=== PATIENT | female | born 1990 | race African-American/Black ===

== ENCOUNTER 2019-09-04 15:35 | Outpatient (CLI) | payer OTHER ==
[2019-09-04] VITALS (11 sets, daily range): BP systolic 120–157; BP diastolic 58–90
[2019-09-04] MEDS ORDERED: LR 1,000 ML IV SCH (16:04)
[2019-09-04] MEDS ORDERED: LACTATED RINGER'S 1000 ML IV STA (16:04)
[2019-09-04] MEDS ORDERED: ONDANSETRON 4MG/2ML VIAL (J2405) IV PRN (16:15)
[2019-09-04 16:39] LABS: HEMATOCRIT 41.4 % (36.0-47.0); MEAN CORPUSCULAR HEMOGLOBIN 25.3 pg (27.0-33.0); MEAN CORPUSCULAR HGB CONC 31.4 g/dl (32.0-36.5); MEAN CORPUSCULAR VOLUME 80.7 fl (80.0-96.0); PLATELET COUNT, AUTOMATED 263 10^3/uL (150-450); RED BLOOD COUNT 5.13 10^6/uL (4.00-5.40); WHITE BLOOD COUNT 8.6 10^3/uL (4.0-10.0)
[2019-09-04 17:00] LABS: CREATININE,RANDOM URINE < 13.0 MG/DL; TOTAL PROTEIN,RANDOM URINE 21.4 MG/DL (0.0-12.0)
[2019-09-04 17:03] LABS: ALBUMIN 2.9 GM/DL (3.2-5.2); ALT/SGPT 25 U/L (12-78); BILIRUBIN,TOTAL 0.4 MG/DL (0.2-1.0); BLOOD UREA NITROGEN 2 MG/DL (7-18); CALCIUM LEVEL 9.4 MG/DL (8.5-10.1); CARBON DIOXIDE LEVEL 24 MEQ/L (21-32); CHLORIDE LEVEL 107 MEQ/L (98-107); CREATININE FOR GFR 0.56 MG/DL (0.55-1.30); GLOMERULAR FILTRATION RATE > 60.0 (>60); GLUCOSE, FASTING 64 MG/DL (70-100); POTASSIUM SERUM 3.5 MEQ/L (3.5-5.1); SODIUM LEVEL 138 MEQ/L (136-145); TOTAL PROTEIN 7.1 GM/DL (6.4-8.2)
[2019-09-04] MEDS ORDERED: BETAMETHASONE SOLUSPAN 6MG/ML INJ 5ML (J0702) As Ordered ONE (17:43)
[2019-09-04] MEDS ORDERED: BETAMETHASONE SOLUSPAN 6MG/ML INJ 5ML (J0702) IM SCH (17:45)
--- NOTE | 2019-09-04 20:55 | REPVR ---
PROCEDURE INFORMATION: Exam: US After First Trimester, Transabdominal Exam date and time: 09/04/2019 7:46 PM Age: 29 years old Clinical indication: Condition or disease; Lmp or gestational age (weeks): 35w 5d; Pre-eclampsia; 1st ; ; Additional info: 35 weeks new dx pre-eclampsia TECHNIQUE: Imaging protocol: Real-time transabdominal obstetrical ultrasound of the maternal pelvis and a second or third trimester with image documentation. COMPARISON: No relevant prior studies available. FINDINGS: Last menstrual period: 12/28/2018 GESTATION: Gestation: There is a single intrauterine gestation. Heart rate: 131 beats per minute Presentation: Vertex Placenta: The location of the placenta is posterior without evidence for placenta previa or placental abruption. The placenta is grade 2. Amniotic fluid: Within normal limits. The amniotic fluid index measures 11.6 cm. Head, face, and neck: Within normal limits. Heart: Within normal limits. Abdomen: There is bilateral pelviectasis. The diaphragm, left-sided stomach, and urinary bladder are within normal limits. Umbilical cord and insertion: The three-vessel umbilical cord is within normal limits. No nuchal cord was visualized. Spine: Within normal limits. Extremities: Poorly visualized secondary to the advanced gestational age, patient's body habitus, and crowding. Gender: Female BIOMETRY: Estimated gestational age: 35 weeks 6 days Estimated due date: 10/03/2019 Estimated weight: 2753 g (6 lb 1 oz); (50th percentile) Biparietal diameter: 9.1 cm; 37 weeks 1 day (70th percentile) Head circumference: 32.5 cm; 36 weeks 6 days (69th percentile) Abdominal circumference: 31.7 cm; 35 weeks 5 days (49th percentile) Humerus length: 6 cm; 34 weeks 5 days (35th percentile) Femur length: 6.8 cm; 34 weeks 6 days (38th percentile) Ratios: CI = 0.8 (0.7-0.86); FL/AC = 0.21 (0.2-0.24); FL/BPD = 0.74 (0.71-0.87); HC/AC = 1.02 (0.93-1.12) DOPPLER: Umbilical artery Doppler: PSV = 39.4 cm/s; EDV = 19.1 cm/s; S/D = 2.06 (2.00-3.00); RI = 0.52 (0.59-0.75) MATERNAL: Uterus: Unremarkable. Cervix: The cervical length was not measured due to the low position of the head of the fetus and a nondistended urinary bladder. Right adnexa: Obscured by overlying bowel gas. Left adnexa: Obscured by overlying bowel gas. IMPRESSION: 1. Single live intrauterine in vertex position with an estimated gestational age of 35 weeks 6 days and estimated due date on 10/03/2019 and demonstrating appropriate signs of growth. 2. Estimated weight: 2753 g (6 lb 1 oz), which is in the 50th percentile. Electronically signed by: Otoniel Mai On 09/04/2019 20:54:28 PM
--- NOTE | 2019-09-04 21:10 | IPNPDOC ---
Text Note Date of Service The patient was seen on 09/04/19. NOTE Triage Note- new diagnosis of pre-eclampsia withOUT severe features Mary is a 29yo with SIUP at 35w5d presenting to triage with CC of "tunnel vision". She notes that for the hour prior to presentation she had been experiencing a visual sensation of blurring around the edges that she has experienced before with a migraine, but she does not currently have a migraine or any kind of headache. She has had ctx the past week, but they have been a bit more regular for the past few hours- not painful at all. No LOF. No vaginal bleeding. No RUQ pain. No f/c/CP/SOB. 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 Single live intrauterine in vertex position with an estimated gestational age of 35 weeks 6 days and estimated due date on 10/03/2019 and demonstrating appropriate signs of growth. 2. Estimated weight: 2753 g (6 lb 1 oz), which is in the 50th percentile. Assessment: Mary is a 29yo with SIUP at 35w5d with new diagnosis of pre-eclampsia withOUT severe features based on mild range bp's and proteinuria. Other labs wnl. Reassuring status. Growth 50%ile. No e/o PTL with SCE 1/thick/high. Plan: -betamethasone 12mg IM now and again in 24hr on L&D -discussed pre-eclampsia with patient at length and instructed her to pay attention for signs of worsening pre-E such as PIERRE/vision changes/RUQ pain -APFTs 2x/week, COB visit within a week and IOL at 37wk (scheduled 12 September) -return precautions discussed at length -safe for discharge home with close follow up Dr. Beverly Hester MD VS,Baron, I+O VS, Baron, I+O Laboratory Tests 09/04/19 16:23 Vital Signs Date Time Temp Pulse Resp B/P (MAP) Pulse Ox O2 Delivery O2 Flow Rate FiO2 09/04/19 18:15 112 18 123/64 (83) Beverly Hester MD Sep 04, 2019 19:43
[2019-09-05] MEDS ORDERED: PRENTAB9 PO (18:21)
== END 2019-09-04 21:05 | disposition home or self-care (01) ==
LOC: M LDO 15:35
PROVIDERS: ATTEND Obstetrics & Gynecology
DX: O14.03 Mild to moderate pre-eclampsia, third trimester (principal); Z3A.35 35 weeks gestation of pregnancy; O99.213 Obesity complicating pregnancy, third trimester; E66.9 Obesity, unspecified; O99.413 Diseases of the circulatory system complicating pregnancy, third trimester; I48.91 Unspecified atrial fibrillation; O34.211 Maternal care for low transverse scar from previous cesarean delivery; Z88.5 Allergy status to narcotic agent; Z79.899 Other long term (current) drug therapy
CPT/HCPCS: 59025; 76811; 76820; 80053; 82570; 84156; 85027; 96372; 96374; G0378; G0463; J0702

== ENCOUNTER 2019-09-05 18:12 | Outpatient (CLI) | payer OTHER ==
[~2019-09-05] VITALS: Ht 160 cm; Wt 104.6 kg
[2019-09-05] MEDS ORDERED: PRENTAB9 PO (18:21)
[2019-09-05 18:23] VITALS: BP 171/96
[2019-09-05] MEDS ORDERED: BETAMETHASONE SOLUSPAN 6MG/ML INJ 5ML (J0702) IM ONE ×2 (18:30→19:00)
[2019-09-05 18:43] VITALS: BP 179/101
[2019-09-05] MEDS ORDERED: BETAMETHASONE SOLUSPAN 6MG/ML INJ 5ML (J0702) As Ordered ONE (18:48)
[2019-09-05 19:13] VITALS: BP 182/107
[2019-09-05 19:28] VITALS: BP 136/67
--- NOTE | 2019-09-05 20:27 | IPNPDOC ---
Text Note Date of Service The patient was seen on 09/05/19. NOTE Patient is a 29yo at 35.6wk with mild pre-eclampsia for second dose of beta. She had elevated BPs in 140s/80s-150s/90s and visual changes and headache. Intermittent contractions. Cervix was 1/thick/high. Labs were essentially WNL. Today she is without symptoms except hand swelling. Good movement. BPs initially 170s/100s until after injection and repositioning then 140s/80s. DTRs +2, no edema, FHT Cat 1, 130s, reactive, no decels, no contractions. She was given preeclampsia precautions for worsening. She will be induced on 09/13/2019. She has an appt 09/08/2019. VS,Fishbone, I+O VS, Fishbone, I+O Vital Signs Date Time Temp Pulse Resp B/P (MAP) Pulse Ox O2 Delivery O2 Flow Rate FiO2 09/05/19 19:28 100 18 136/67 (90) 09/05/19 18:23 100.3 Genoveva Cuba MD Sep 05, 2019 20:27
== END 2019-09-05 20:26 | disposition home or self-care (01) ==
LOC: M LDO 18:12
PROVIDERS: ATTEND Advanced Practice Midwife
DX: O14.03 Mild to moderate pre-eclampsia, third trimester (principal); Z3A.35 35 weeks gestation of pregnancy; Z88.5 Allergy status to narcotic agent; Z79.899 Other long term (current) drug therapy
CPT/HCPCS: 59025; 96372; G0463; J0702

== ENCOUNTER 2019-09-10 21:20 | Inpatient (IN) | payer OTHER ==
[~2019-09-10] VITALS: Ht 160 cm; Wt 105.5 kg
[2019-09-10] VITALS (7 sets, daily range): BP systolic 146–179; BP diastolic 86–108
[~2019-09-10 21:20] MED LIST: PRENTAB9 PO
[2019-09-10] MEDS ORDERED: LABETALOL HCL 100 MG/20 ML VIAL IV STA (22:28)
[2019-09-10] MEDS ORDERED: LR 1,000 ML IV SCH (22:39)
[2019-09-10] MEDS ORDERED: PENICILLIN G POTASSIUM IV 5 MU in D5W MINI-BAG PLUS 100 ML IV STA (22:39)
[2019-09-10 22:41] LABS: BASO % 0.3 % (0.0-1.0); EOS # 0.2 10^3/uL (0.0-0.5); EOS % 2.1 % (0.0-3.0); HEMATOCRIT 34.9 % (36.0-47.0); HEMOGLOBIN 10.8 g/dl (12.0-15.5); LYMPH # 1.9 10^3/uL (1.5-5.0); LYMPH % 24.4 % (24.0-44.0); MEAN CORPUSCULAR HEMOGLOBIN 24.3 pg (27.0-33.0); MEAN CORPUSCULAR HGB CONC 30.9 g/dl (32.0-36.5); MEAN CORPUSCULAR VOLUME 78.6 fl (80.0-96.0); MONO # 0.6 10^3/uL (0.0-0.8); MONO % 8.3 % (0.0-5.0); NEUTROPHILS % 64.4 % (36.0-66.0); PLATELET COUNT, AUTOMATED 273 10^3/uL (150-450); RED BLOOD COUNT 4.44 10^6/uL (4.00-5.40); WHITE BLOOD COUNT 7.7 10^3/uL (4.0-10.0)
[2019-09-10] MEDS ORDERED: OXYTOCIN DRIP 30 UNITS in IV 1 EA IV SCH (22:45)
[2019-09-10] MEDS ORDERED: CALCIUM GLUCONATE 1,000 MG in D5W MINI-BAG PLUS 100 ML IV PRN (22:45)
[2019-09-10] MEDS ORDERED: MAG Sulf (L&D) 4 GM/100 ML 4 GM in IV 1 EA IV ONE (22:45)
[2019-09-10] MEDS ORDERED: OXYTOCIN 30 UNITS IN 0.9% NaCl 500ML IV BAG (J2590) As Ordered ONE (22:45)
[2019-09-10 22:57] LABS: CREATININE,RANDOM URINE < 13.0 MG/DL; TOTAL PROTEIN,RANDOM URINE 11.9 MG/DL (0.0-12.0)
[2019-09-10 22:59] LABS: ALBUMIN 2.3 GM/DL (3.2-5.2); ALT/SGPT 20 U/L (12-78); BILIRUBIN,TOTAL 0.2 MG/DL (0.2-1.0); BLOOD UREA NITROGEN 4 MG/DL (7-18); CALCIUM LEVEL 8.7 MG/DL (8.5-10.1); CARBON DIOXIDE LEVEL 23 MEQ/L (21-32); CHLORIDE LEVEL 109 MEQ/L (98-107); CREATININE FOR GFR 0.47 MG/DL (0.55-1.30); GLOMERULAR FILTRATION RATE > 60.0 (>60); GLUCOSE, FASTING 89 MG/DL (70-100); POTASSIUM SERUM 3.7 MEQ/L (3.5-5.1); SODIUM LEVEL 139 MEQ/L (136-145); TOTAL PROTEIN 5.9 GM/DL (6.4-8.2)
[2019-09-10] MEDS ORDERED: LABETALOL HCL 100 MG/20 ML VIAL IV PRN (23:00)
[2019-09-10] MEDS ORDERED: ACETAMINOPHEN 500 MG TAB PO PRN (23:30)
[2019-09-10] MEDS ORDERED: PROMETHAZINE INJ 25 MG/ML VIAL (J2550) IV ONE (23:30)
[2019-09-10] MEDS ORDERED: BUTORPHANOL 2 MG/ML INJ (J0595) IV PRN (23:30)
--- NOTE | 2019-09-10 23:30 | HPEPDOC ---
Obstetrical History & Physical General Date of Admission 10 September 2019 History of Present Illness Mary is a 29yo with SIUP at 36w4d by lmp presenting to L&D tori with chief complaint of frontal headache and white shooting spots in her vision. She was diagnosed with pre-eclampsia withOUT severe features previously on 09/04/19, given steroids and scheduled for IOL at 37wk- she was given return precautions and appropriately came in. She is having regular ctx, not too strong yet. No LOF. No vaginal bleeding. Feels good movement. No chest pain, SOB or RUQ pain. Chief Complaint: Contractions, term, Pre-eclamsia Information Provided By: Patient Care Care: Good Care Dating Final EDC: Oct 04, 2019 Final EDC by: LMP Antepartum Course Diagnos(e)s Pre-eclampsia with severe features, an episode of paroxysmal atrial fibrillation for which she was started on diltiazem but then with normal cardiac echo and EKG the diltiazem was discontinued without further incident, Obesity BMI 35, history of one prior section for indication with subsequent successful (8lb5oz) complicated by pulmonary edema, transfer-in at 27 weeks Height (inches): 63 Pre- weight (lbs.): 198 Admission Weight (lbs.): 229 Change in Weight (lbs.): 31 Past Medical History Past Obstetrical History : Past Obstetrical History: Multigravida (2016 PLTCS for indication at 41wk (8lb9oz), 2018 38wk active labor 8lb5oz admitted 1 month later for pulmonary edema) Past Medical History Medical History Obesity BMI 35, childhood asthma Surgical History: section, Gallbladder, [place] teeth Family History Significant Family History: No pertinent family hx Social History Marital Status: Family situation: Spouse/partner home Psychosocial History: No pertinent psych hx * Smoker: non-smoker Alcohol: Denies Drugs: denies Imunizations Tdap status: current Influenza Status: current Allergies Coded Allergies: codeine (Verified Allergy, Mild, hands and face swell, 09/05/19) Medications Scheduled No.137/Iron/Folic Acd ( Vitamin Tablet) 1 Each Tablet, 1 TAB PO DAILY Physical Examination Physical Examination GENERAL: Alert and oriented times three. ABDOMEN: Gravid and non-tender to touch. FETUS: Is vertex (VTX) by sterile vaginal examination (SVE) EXTREMITIES: trace pedal edema Vital Signs/I&O Vital Signs Date Time Temp Pulse Resp B/P (MAP) Pulse Ox O2 Delivery O2 Flow Rate FiO2 09/10/19 21:45 98.3 110 18 179/108 (131) 98 Room Air Laboratory Data 24H LABS Laboratory Tests 2 09/10/19 22:23: Immature Granulocyte % (Auto) 0.5, Neutrophils (%) (Auto) 64.4, Lymphocytes (%) (Auto) 24.4, Monocytes (%) (Auto) 8.3H, Eosinophils (%) (Auto) 2.1, Basophils (%) (Auto) 0.3, Neutrophils # (Auto) 5.0, Lymphocytes # (Auto) 1.9, Monocytes # (Auto) 0.6, Eosinophils # (Auto) 0.2, Basophils # (Auto) 0.0, Nucleated Red Blo od Cells % (auto) 0.7H 09/10/19 22:24: CBC/BMP Laboratory Tests 09/10/19 22:23 Pertinent Laboratoy Data Blood Type: B+ RBC Antibody Screen: Negative HIV: Negative Hepatitis B: Negative Hepatitis C: Unknown Rapid Plasma Reagin: Nonreactive Rubella: Immune Varicella: Immune Chlamydia/Gonorrhea: Negative Group B Streptococcus: Unknown Glucose Tolerance Test: 106 Anatomy Ultrasound Ultrasound Date: Sep 04, 2019 Placenta Location: Posterior Normal Anatomy: Yes Placenta Previa: No Steroid Therapy Steroid Therapy: No Vaginal Examination Dilation: 3 cm Effacement: 50% Station: -2 Cervical Consistency: Medium Cervical Position: Middle Presentation: Cephalic presentation Assessment Heart Rate (FHR): 140 Variability: Moderate Accelerations: Positive Decelerations: None Tocometer Contractions: Yes Frequency: regular, every 2-5 min. Duration: greater than 60 seconds Strength: palpated as mild Assessment/Plan Assessment Mary is a 29yo with SIUP at 36w4d by lmp having new diagnosis of pre- eclampsia WITH severe features based on severe range bp's in the setting of prior dx of pre-eclampsia (previously mild range bp's) having proteinuria. She has frontal headache and scotoma. Initial bp 179/108 that was similar when repeated. Cat I FHRT. SCE 3/50/-2. Ctx q5min. GBS unknown. Plt 273. urine prot/creat 0.92. creat 0.47. AST/ALT wnl. Goodwin cervical balloon placed with 40c c NS, well tolerated. course/PMhx significant for: Pre-eclampsia with severe features, an episode of paroxysmal atrial fibrillation for which she was started on diltiazem but then with normal cardiac echo and EKG the diltiazem was discontinued without further incident, Obesity BMI 35, history of one prior section for indication with subsequent successful (8lb5oz) complicated by pulmonary edema treated with lasix, transfer-in at 27 weeks, childhood asthma Plan Admit and orient. Counseled and consented. Patient has history of a section followed by a successful and desires another TOLAC. We discussed diagnosis of pre- eclampsia WITH severe features. Discussed need for IOL (though really augmentation of latent labor since and rebecca regularly). Will proceed with goodwin bulb and IV pitocin, eventually AROM. Will place IUPC if needed. Labetalol 20mg IV now and will repeat as needed. IV MgSO4 4g/2g per protocol with q1hr neuro checks. Goodwin catheter. Bedrest. tylenol 1,000mg PO q6hr prn PIERRE Diet: clear liquids Group B Streptococcus (GBS) unknown (swab was done 09/07 but not yet resulted): since will given PCN prophylaxis Labs and intravenous (IV) per unit protocol. CBC, CMP, urine protein/creatinine, type and screen, RPR Lactated Ringers (LR) total IVF 125 mL/hr. Anticipate normal spontaneous delivery () MD Kacie Edwards Katrina D MD Sep 10, 2019 23:16
[2019-09-10] MEDS: MAG Sulf (OBGYN) 20GM/500ML 20,000 MG in IV 1 EA IV SCH (23:39)
[2019-09-11] VITALS (48 sets, daily range): BP systolic 126–190; BP diastolic 61–103
[2019-09-11] MEDS: PENICILLIN G POTASSIUM IV 2.5 MU in IV 1 EA IV SCH ×2 (04:13→08:32)
[2019-09-11] MEDS: DOCUSATE SODIUM 100 MG CAP PO SCH (09:00)
[2019-09-11] MEDS: MAG Sulf (OBGYN) 20GM/500ML 20,000 MG in IV 1 EA IV SCH (09:18)
--- NOTE | 2019-09-11 09:22 | IPNPDOC ---
Text Note Date of Service The patient was seen on 09/11/19. NOTE Patient becoming more uncomfortable with ctxs. VS WNL with BP 140s/80s GEN: mildly uncomfortable appearing ABD: nontender, gravid SVE: 5/70/0, AROM clear LE: SCDS in place, nontender FHT: Cat 1, 130s, reactive, ctx q3-4min A/P: Fetus reassuring. Will reduce pitocin due to AROM accordingly. Patient desiring epidural for pain. Expect /. VS,Fishbone, I+O VS, Fishbone, I+O Laboratory Tests 09/10/19 22:23 Vital Signs Date Time Temp Pulse Resp B/P (MAP) Pulse Ox O2 Delivery O2 Flow Rate FiO2 09/11/19 08:33 99 18 143/86 (105) 09/11/19 07:33 97.5 09/11/19 04:00 98 Room Air I&O- Last 24 Hours up to 6 AM 09/11/19 06:00 Intake Total 941.8 ml Output Total 1975 ml Balance -1033.2 ml Genoveva Cuba MD Sep 11, 2019 09:22
[2019-09-11 10:32] LABS: HEMATOCRIT 35.5 % (36.0-47.0); HEMOGLOBIN 11.1 g/dl (12.0-15.5); MEAN CORPUSCULAR HEMOGLOBIN 24.4 pg (27.0-33.0); MEAN CORPUSCULAR HGB CONC 31.3 g/dl (32.0-36.5); PLATELET COUNT, AUTOMATED 289 10^3/uL (150-450); RED BLOOD COUNT 4.55 10^6/uL (4.00-5.40); WHITE BLOOD COUNT 10.1 10^3/uL (4.0-10.0)
[2019-09-11] MEDS ORDERED: OXYTOCIN DRIP 30 UNITS in IV 1 EA IV SCH (11:35)
[2019-09-11] MEDS ORDERED: MAG Sulf (OBGYN) 20GM/500ML 20,000 MG in IV 1 EA IV SCH (11:35)
[2019-09-11] MEDS ORDERED: MEASLES,MUMPS,RUBELLA VACCINE INJ (MMR-II) (90707) SC SCH (11:45)
[2019-09-11] MEDS ORDERED: ACETAMINOPHEN 500 MG TAB PO PRN (11:45)
[2019-09-11] MEDS ORDERED: LIDOCAINE 1% MDV 20ML VIAL INFIL ONE (11:45)
[2019-09-11] MEDS ORDERED: MOM 30ML SUSPENSION UDC PO PRN (11:45)
[2019-09-11] MEDS ORDERED: CALCIUM GLUCONATE 1,000 MG in D5W MINI-BAG PLUS 100 ML IV PRN (11:45)
[2019-09-11] MEDS ORDERED: DIBUCAINE 1% OINTMENT 30GM TOP PRN (11:45)
[2019-09-11] MEDS ORDERED: ONDANSETRON 4MG/2ML VIAL (J2405) IV PRN (11:45)
[2019-09-11] MEDS ORDERED: ANUSOL HC CREAM 30GM TOP PRN (11:45)
[2019-09-11] MEDS ORDERED: RHOGAM 300 MCG (1500 IU) INJ (J2790) IM SCH (11:45)
[2019-09-11] MEDS ORDERED: IBUPROFEN 600 MG TAB PO PRN (11:45)
[2019-09-11] MEDS ORDERED: METHYLERGONOVINE MALEATE 0.2 MG TAB PO PRN (11:45)
--- NOTE | 2019-09-11 11:54 | DNPDOC ---
[facility] Delivery Note Delivery Note DATE OF DELIVERY: 09/11/2019 PREDELIVERY DIAGNOSIS: 36 5/7 weeks' gestation and labor. POST DELIVERY DIAGNOSIS: Delivered. PROCEDURE: Spontaneous vaginal delivery after section. DIALS SUPERVISOR: Dr. Cuba ANESTHESIA: None. ESTIMATED BLOOD LOSS: 250 mL. FINDINGS: 6 pound 10 ounce 3010gm female , Score 9/10, nuchal cord times 0. DELIVERY SUMMARY: Patient is a 29-year-old 4 now para 3 who was admitted to labor and delivery for active labor for 12hours. Patient AROM clear around 0900. Baby girl head was delivered without difficulty over intact perineum in AYAZ position at 1059. The nose and mouth were bulb suctioned. No nuchal cord was noted. The shoulders were then delivered without difficulty. Cord was then clamped x2 and cut after pulsation. was handed on mother's belly. Pitocin bolus was started. Perineum and vagina was inspected and found to have a 1st degree laceration. This was repaired with 1% lidocaine 4cc with 2-0 chromic. The placenta was then delivered at 1106 spontaneously intact. Cord had a 3 vessel cord. EBL was 250mL. The vagina and perineum were reinspected and no further lacerations were found and hemostasis was good. Fundus was firm. Patient tolerated delivery well. Genoveva Cuba MD Sep 11, 2019 11:46
[2019-09-11] MEDS ORDERED: diazePAM 2 MG TAB PO ONE (13:00)
--- NOTE | 2019-09-11 14:08 | IPNPDOC ---
Text Note Date of Service The patient was seen on 09/11/19. NOTE Called by nurse due to BP ranging from 130s/80s-190s/110s. Patient otherwise feeling ok. No labetolol given yet. Patient on Magnesium sulfate 2gm/hr. I will start nifedipine XL BID with Labetolol PRN. VS,Fishbone, I+O VS, Fishbone, I+O Laboratory Tests 09/10/19 22:23 09/11/19 10:16 Vital Signs Date Time Temp Pulse Resp B/P (MAP) Pulse Ox O2 Delivery O2 Flow Rate FiO2 09/11/19 08:33 99 18 143/86 (105) 09/11/19 07:33 97.5 09/11/19 04:00 98 Room Air I&O- Last 24 Hours up to 6 AM 09/11/19 06:00 Intake Total 941.8 ml Output Total 1975 ml Balance -1033.2 ml Genoveva Cuba MD Sep 11, 2019 14:08
[2019-09-11] MEDS ORDERED: CALCIUM CARBONATE 500 MG CHEW U/D PO PRN (14:15)
[2019-09-11] MEDS ORDERED: SIMETHICONE 80 MG CHEW TAB PO PRN (14:15)
[2019-09-11] MEDS ORDERED: diphenhydrAMINE 25 MG CAP PO PRN (14:15)
[2019-09-11] MEDS ORDERED: LABETALOL HCL 100 MG/20 ML VIAL IV SCH (14:30)
[2019-09-11] MEDS: NIFEdipine 10 MG CAP PO SCH ×2 (15:28→21:52)
[2019-09-11] MEDS ORDERED: CARBOPROST TROMETHAMINE 250 MCG/ML AMP As Ordered ONE (17:03)
[2019-09-11] MEDS ORDERED: OXYTOCIN 30 UNITS IN 0.9% NaCl 500ML IV BAG (J2590) As Ordered ONE (17:06)
[2019-09-11] MEDS ORDERED: cefTRIAXone SOD 1 GM VIAL (J0696) As Ordered ONE (17:09)
[2019-09-11] MEDS ORDERED: LR 1,000 ML IV SCH (17:43)
[2019-09-11] MEDS ORDERED: miSOPROStol 200 MCG TAB (S0191) PR ONE (17:45)
[2019-09-11] MEDS ORDERED: OXYTOCIN INJ 10 UNITS/ML VIAL (J2590) IV ONE (17:45)
[2019-09-11 17:50] LABS: HEMATOCRIT 33.9 % (36.0-47.0); HEMOGLOBIN 10.7 g/dl (12.0-15.5); MEAN CORPUSCULAR HEMOGLOBIN 24.9 pg (27.0-33.0); MEAN CORPUSCULAR HGB CONC 31.6 g/dl (32.0-36.5); PLATELET COUNT, AUTOMATED 285 10^3/uL (150-450); RED BLOOD COUNT 4.29 10^6/uL (4.00-5.40); WHITE BLOOD COUNT 12.3 10^3/uL (4.0-10.0)
[2019-09-11] MEDS ORDERED: CARBOPROST TROMETHAMINE 250 MCG/ML AMP IM ONE (18:00)
--- NOTE | 2019-09-11 18:03 | IPNPDOC ---
Text Note Date of Service The patient was seen on 09/11/19. NOTE Called by nurse for increased bleeding. Once evaluated, there was 1200mL of blood and clotts expressed from JEIMY. Fundus was firm however at -2. PPH cart brought and pitocin began. Other IV opened wide open. Hemabate 250mcg IM x1 given and then cytotec 1000mcg UT x1 given. Chucks changed. 2units PRBC ordered for T&C and CBC sent. Rocephin 2gm IV began due to multiple digitation to remove clots. Bleeding began to decrease. Patient felt weak and nauseated without vomitting. Over time nausea resolved. VS stable at 140/80 and HR 100s. Fundus rechecked and firm including JEIMY with mild bleeding. Magnesium discontinued. I discussed with patient about PRBC transfusion for weakness or waiting due to being hemodynamically stable. I told her that if she bleeds more than she will require blood. I explained the risks of infection of viruses or unknown, reaction to blood, or rarely . The benefits are increased strength and blood count and decreased risk of needing emergency PRBC. Patient desires PRBC which will be ordered. I will recheck another H/H 4hrs post. VS,Fishbone, I+O VS, Fishbone, I+O Laboratory Tests 09/10/19 22:23 09/11/19 10:16 09/11/19 17:29 Vital Signs Date Time Temp Pulse Resp B/P (MAP) Pulse Ox O2 Delivery O2 Flow Rate FiO2 09/11/19 16:43 103 18 142/89 (106) 09/11/19 07:33 97.5 09/11/19 04:00 98 Room Air I&O- Last 24 Hours up to 6 AM 09/11/19 06:00 Intake Total 941.8 ml Output Total 1975 ml Balance -1033.2 ml Genoveva Cuba MD Sep 11, 2019 18:03
[2019-09-11] MEDS ORDERED: cefTRIAXone SOD 2 GM in D5W MINI-BAG PLUS 50 ML IV ONE (19:00)
[2019-09-11] MEDS ORDERED: OXYTOCIN DRIP 30 UNITS in IV 1 EA IV ONE (20:00)
[2019-09-11] MEDS: IBUPROFEN 800 MG TAB PO PRN (22:10)
[2019-09-12] VITALS (7 sets, daily range): BP systolic 125–147; BP diastolic 63–88
[2019-09-12 00:12] LABS: HEMATOCRIT 30.9 % (36.0-47.0); HEMOGLOBIN 9.8 g/dl (12.0-15.5); MEAN CORPUSCULAR HEMOGLOBIN 24.8 pg (27.0-33.0); MEAN CORPUSCULAR HGB CONC 31.7 g/dl (32.0-36.5); MEAN CORPUSCULAR VOLUME 78.2 fl (80.0-96.0); PLATELET COUNT, AUTOMATED 249 10^3/uL (150-450); RED BLOOD COUNT 3.95 10^6/uL (4.00-5.40); WHITE BLOOD COUNT 13.5 10^3/uL (4.0-10.0)
[2019-09-12] MEDS: NIFEdipine 10 MG CAP PO SCH ×3 (05:54→21:57)
[2019-09-12 06:53] LABS: ALT/SGPT 18 U/L (12-78); BILIRUBIN,TOTAL 0.2 MG/DL (0.2-1.0); CREATININE FOR GFR 0.49 MG/DL (0.55-1.30); GLOMERULAR FILTRATION RATE > 60.0 (>60); LDH LACTATE DEHYDROGENASE 291 U/L (84-246); MAGNESIUM LEVEL 2.5 MG/DL (1.8-2.4); URIC ACID 3.9 MG/DL (2.6-6.0)
--- NOTE | 2019-09-12 07:22 | IPNPDOC ---
Progress Note Date of Service: Sep 12, 2019 Day#: 1 Progress Note SUBJECT: Patient is a 29-year-old 4 now Para 3 status post uncomplicated with post 1st degree laceration and repair, doing well day # 1. She was induced for severe pre-eclampsia and PPH. She has Hct 30 post 1Un PRBC. No weakness or dizziness. No headaches. Normal bleeding minimal cramps OBJECTIVE: VITAL SIGNS: Within normal limits, afebrile. GENERAL: No acute distress HEENT: MMM BREAST: Nontender, no erythema CARDIOVASCULAR EXAMINATION: RRR RESPIRATORY EXAMINATION: Bilaterally clear ABDOMINAL EXAMINATION: Soft, appropriate tenderness, nondistended, fundus -2 PERINEUM: Intact, minimal lochia EXTREMITIES: no edema, nontender ASSESSMENT: Patient is a 29-year-old 4 now Para 3 status post uncomplicated with post 1st degree laceration and repair, doing well day # 1. Vitals within normal limits, afebrile, hemodynamically stable with no evidence of infection. PLAN: 1. D/c goodwin and HLIV. Transfer to . 2. Tylenol and Motrin for pain. 3. Encourage breast feeding and ambulation. 4. Continue pre-eclampsia precautions. VS, I&O, 24H, Fishbone Vital Signs/I&O Vital Signs Date Time Temp Pulse Resp B/P (MAP) Pulse Ox O2 Delivery O2 Flow Rate FiO2 09/11/19 08:33 99 18 143/86 (105) 09/11/19 07:33 97.5 09/11/19 04:00 98 Room Air I&O- Last 24 Hours up to 6 AM 09/11/19 06:00 Intake Total 941.8 ml Output Total 1975 ml Balance -1033.2 ml Laboratory Data 24H LABS Laboratory Tests 2 09/10/19 22:23: Immature Granulocyte % (Auto) 0.5, Neutrophils (%) (Auto) 64.4, Lymphocytes (%) (Auto) 24.4, Monocytes (%) (Auto) 8.3H, Eosinophils (%) (Auto) 2.1, Basophils (%) (Auto) 0.3, Neutrophils # (Auto) 5.0, Lymphocytes # (Auto) 1.9, Monocytes # (Auto) 0.6, Eosinophils # (Auto) 0.2, Basophils # (Auto) 0.0, Nucleated Red Blood Cells % (auto) 0.7H, Anion Gap 7L, Glomerular Filtration Rate > 60.0, Calcium Level 8.7, Total Bilirubin 0.2, Aspartate Amino Transf (AST/SGOT) 21, Alanine Aminotransferase (ALT/SGPT) 20, Alkaline Phosphatase 124H, Total Protein 5.9L, Albumin 2.3L, Albumin/Globulin Ratio 0.64L 09/10/19 22:24: Urine Random Creatinine < 13.0, Urine Random Total Protein 11.9 09/11/19 10:16: Nucleated Red Blood Cells % (auto) 0.4H, Syphilis Serology NONREACTIVE, Hepatitis B Surface Antigen (Rapid) NEGATIVEL CBC/BMP Laboratory Tests 09/10/19 22:23 09/11/19 10:16 Genoveva Cuba MD Sep 11, 2019 12:01
[2019-09-12] MEDS ORDERED: LIDOCAINE 1% MDV 20ML VIAL As Ordered ONE (10:26)
[2019-09-12] MEDS ORDERED: miSOPROStol 200 MCG TAB (S0191) As Ordered ONE (10:27)
[2019-09-12] MEDS: IBUPROFEN 800 MG TAB PO PRN (20:23)
[2019-09-12] MEDS: DOCUSATE SODIUM 100 MG CAP PO SCH (20:25)
[2019-09-13 01:58] VITALS: BP 134/75
[2019-09-13 05:51] VITALS: BP 126/70
[2019-09-13 06:08] VITALS: BP 120/70
[2019-09-13] MEDS: NIFEdipine 10 MG CAP PO SCH (06:08)
[2019-09-13 07:01] LABS: HEMATOCRIT 26.1 % (36.0-47.0); HEMOGLOBIN 7.9 g/dl (12.0-15.5); MEAN CORPUSCULAR HEMOGLOBIN 24.7 pg (27.0-33.0); MEAN CORPUSCULAR HGB CONC 30.3 g/dl (32.0-36.5); MEAN CORPUSCULAR VOLUME 81.6 fl (80.0-96.0); PLATELET COUNT, AUTOMATED 234 10^3/uL (150-450); WHITE BLOOD COUNT 10.2 10^3/uL (4.0-10.0)
[2019-09-13] MEDS ORDERED: DOCU100C16 PO (07:23)
[2019-09-13] MEDS ORDERED: PROC1CRE5 TOP (07:23)
[2019-09-13] MEDS ORDERED: DIBU10OI TOP (07:23)
[2019-09-13] MEDS: DOCUSATE SODIUM 100 MG CAP PO SCH (09:34)
[2019-09-13] MEDS: PRENATAL VITAMINS CHEWABLE TABLET PO SCH ×2 (09:34→09:35)
--- NOTE | 2019-09-13 09:55 | IPN ---
DATE: 09/13/2019 This lady as mentioned was 3, now para 3, and was admitted as a preeclampsia to eclampsia. She had been given one dose of nifedipine. On the history, #1 had mentioned that she had cardiomyopathy and that was incorrect. She had a family history, but very remote in that there was not enough evidence to actually diagnose anybody in her family as cardiomyopathy and she neither. She had a hemorrhage for which she received 2 units of blood. We redid her CBC this morning. Her hemoglobin is 7.9 and hematocrit is 26.1. She was given 2 units of blood 24 hours before because she was symptomatic. We went in and discussed the indications for giving her 2 more units of blood being that her hemoglobin is so low. She declined both hemoglobin and alternative medications to bring her CBC up. She just wants to go home and she is on not interested despite our increased efforts to explain to her going home looking after three children and with such a low hemoglobin she is at risk for not only symptomatic hypotension, but also increased risk for diseases such as viral flu, influenza and now the proposed coronavirus. The patient is adamant about going home without blood transfusion. Therefore, we will discharge her and she is to call in regards to making a visit. We also discussed the fact that the cardiomyopathy is only suggestive. The patient has her medications at [place] for pickup.
--- NOTE | 2019-09-13 13:29 | DSES ---
DATE OF ADMISSION: 09/10/2019 DATE OF DISCHARGE: 09/13/2019 This lady is a 29-year-old 3 now para 3 who was admitted at 36 and 4 weeks of gestation with a history of ruling out preeclampsia, had some severe range blood pressures. She had induction of labor with Wyman bulb catheter, was TOLAC from previous vaginal delivery, delivered with no anesthetic a live female weighing 6 pounds 10 ounces, 3010 grams, scores of nine and ten at 1 and 5 minutes respectively. She has a history of hemorrhage delayed, approximately 1500 mL. She was given Cytotec, Hemabate an IV Pitocin. It finally resolved. Her admitting hemoglobin was 10.8, hematocrit was 34.9. Followup hemoglobin 11.1, hematocrit 35.5 and then she had a hemoglobin of 9.8 with hemoglobin of 30.9. She presently has drop of hemoglobin of 7.9 with 26.1. We are going to decide whether not to increase her 2 more units of blood based on her symptomatology. Her vital signs this morning her blood pressure is 120/70, previously 126/70, respirations 18, pulse 98, temperature is 98.0. Throughout her stay from 09/11 at 1804 hours she has had normalized blood pressures and in reviewing back, her only elevated blood pressures were prior to delivery at 157/86. There is both automated and manual cuff and there was no other severe range blood pressure noted. The rest of the examination unremarkable. She is normocephalic, atraumatic. Neck full range of motion. Pupils equal and reactive to light. Distal pulses are symmetric. No evidence of deep vein thrombosis (DVT), pulmonary embolism (PE), or superficial phlebitis. Chest is clear bilaterally to the bases. No wheezes or rhonchi. Abdomen soft, uterus 2 below. Lochia is moderate. She has no pedal edema. No rashes, lesions or pruritus. No arthralgia, myalgia. No complaint joint pain. No complaint of cough, wheeze, shortness of breath or dyspnea on exertion. In summary, we have a 36 and 4, history of TOLAC, severe range 1 blood pressure, preeclampsia. In evaluating her medications she was given misoprostol as she had one nifedipine 10 mg p.o. The magnesium sulfate was discontinued. Mag level was done 12 hours later, however, it is not of any value at the present time. We will reevaluate this patient's symptomatology based on her hemoglobin being 7.9 and 26.1.
== END 2019-09-13 11:25 | disposition home or self-care (01) | DRG 807 ==
LOC: M LDO 21:20 → M LDI 22:49 → M OBS 09-12 08:51
PROVIDERS: ADMIT Obstetrics & Gynecology; ATTEND Obstetrics & Gynecology
PROC: 3E033VJ Introduction of Other Hormone into Peripheral Vein, Percutaneous Approach (ICD-10-PCS; 2019-09-10)
PROC: 10E0XZZ Delivery of Products of Conception, External Approach (ICD-10-PCS; principal; 2019-09-11)
PROC: 0HQ9XZZ Repair Perineum Skin, External Approach (ICD-10-PCS; 2019-09-11)
PROC: 10907ZC Drainage of Amniotic Fluid, Therapeutic from Products of Conception, Via Natural or Artificial Opening (ICD-10-PCS; 2019-09-11)
DX: O14.14 Severe pre-eclampsia complicating childbirth (principal); Z37.0 Single live birth; Z3A.36 36 weeks gestation of pregnancy; O34.211 Maternal care for low transverse scar from previous cesarean delivery; Z68.35 Body mass index [BMI] 35.0-35.9, adult; E66.9 Obesity, unspecified; O99.214 Obesity complicating childbirth; O70.0 First degree perineal laceration during delivery; O69.81X0 Labor and delivery complicated by cord around neck, without compression, not applicable or unspecified

== ENCOUNTER 2019-09-15 21:17 | Emergency (ER) | payer OTHER ==
[~2019-09-15] VITALS: Ht 160 cm; Wt 101.0 kg
[~2019-09-15 21:17] MED LIST changes: +DIBU10OI TOP; +DOCU100C16 PO; +PROC1CRE5 TOP
[2019-09-15] MEDS ORDERED: LABETALOL HCL 100 MG/20 ML VIAL IV STA ×2 (21:39→22:43)
[2019-09-15] MEDS ORDERED: ASPIRIN 81 MG CHEW TABLET PO ONE (21:45)
[2019-09-15 22:06] LABS: BASO % 0.3 % (0.0-1.0); EOS # 0.2 10^3/uL (0.0-0.5); EOS % 2.2 % (0.0-3.0); HEMATOCRIT 28.3 % (36.0-47.0); HEMOGLOBIN 8.5 g/dl (12.0-15.5); LYMPH # 2.2 10^3/uL (1.5-5.0); LYMPH % 23.9 % (24.0-44.0); MEAN CORPUSCULAR HEMOGLOBIN 24.6 pg (27.0-33.0); MONO # 0.6 10^3/uL (0.0-0.8); MONO % 5.9 % (0.0-5.0); NEUTROPHILS # 6.2 10^3/uL (1.5-8.5); NEUTROPHILS % 66.4 % (36.0-66.0); PLATELET COUNT, AUTOMATED 308 10^3/uL (150-450); RED BLOOD COUNT 3.45 10^6/uL (4.00-5.40); WHITE BLOOD COUNT 9.3 10^3/uL (4.0-10.0)
[2019-09-15 22:17] LABS: PROTHROMBIN TIME 12.9 SECONDS (11.8-14.0)
[2019-09-15 22:34] LABS: ALBUMIN 2.5 GM/DL (3.2-5.2); ALT/SGPT 49 U/L (12-78); BILIRUBIN,DIRECT < 0.1 MG/DL (0.0-0.2); BILIRUBIN,TOTAL 0.2 MG/DL (0.2-1.0); BLOOD UREA NITROGEN 7 MG/DL (7-18); CALCIUM LEVEL 8.1 MG/DL (8.5-10.1); CARBON DIOXIDE LEVEL 25 MEQ/L (21-32); CHLORIDE LEVEL 113 MEQ/L (98-107); CK-MB VALUE MASS 5.1 NG/ML (<3.6); CPK CREATINE PHOSPHOKINASE 367 U/L (26-192); CREATININE FOR GFR 0.56 MG/DL (0.55-1.30); GLOMERULAR FILTRATION RATE > 60.0 (>60); GLUCOSE, FASTING 77 MG/DL (70-100); MB/CK RELATIVE INDEX 1.39 (< OR =4); POTASSIUM SERUM 3.6 MEQ/L (3.5-5.1); SODIUM LEVEL 143 MEQ/L (136-145); TOTAL PROTEIN 6.3 GM/DL (6.4-8.2); TROPONIN I 0.09 NG/ML (< 0.10)
[2019-09-15 22:52] VITALS: BP 158/101
[2019-09-15 23:19] LABS: PROTEIN, URINE AUTO NEGATIVE (NEGATIVE)
[2019-09-15 23:21] LABS: MAGNESIUM LEVEL 1.9 MG/DL (1.8-2.4)
[2019-09-15] MEDS ORDERED: IRON65TA2 PO (23:32)
[2019-09-15] MEDS ORDERED: DOCU100C17 PO (23:33)
[2019-09-15 23:38] LABS: CREATININE,RANDOM URINE < 13.0 MG/DL
[2019-09-15 23:45] VITALS: BP 159/97
--- NOTE | 2019-09-16 08:48 | REP ---
Clinical: Chest pain. Comparison: None . Findings: The mediastinum and cardiac silhouette are stable and within normal limits for portable technique. The lung fatima are clear without acute consolidation, effusion, or pneumothorax. Skeletal structures are intact. Impression: No acute cardiopulmonary process appreciated. Electronically Signed by Lele Qiu MD 09/16/2019 08:40 A
--- NOTE | 2019-09-17 06:37 | ECGEPIP ---
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
== END 2019-09-15 23:52 | disposition admitted as inpatient to this hospital (09) ==
LOC: M ED 21:17
DX: O15.2 Eclampsia complicating the puerperium (principal); R00.0 Tachycardia, unspecified; I51.9 Heart disease, unspecified; Z88.5 Allergy status to narcotic agent; Z79.899 Other long term (current) drug therapy

== ENCOUNTER 2019-09-15 23:55 | Inpatient (IN) | payer OTHER ==
[~2019-09-15] VITALS: Ht 160 cm; Wt 104.5 kg
[~2019-09-15 23:55] MED LIST changes: +DOCU100C17 PO; +IRON65TA2 PO
[2019-09-16] VITALS (67 sets, daily range): BP systolic 124–180; BP diastolic 69–117
[2019-09-16] MEDS ORDERED: MAGNESIUM *L&D* 4 GM/100 ML BAG (40MG/ML) (J3475) As Ordered ONE (00:09)
[2019-09-16] MEDS ORDERED: MAGNESIUM SULFATE 4% INJ 20GM/500ML (40MG/ML) (J3475) As Ordered ONE (00:09)
[2019-09-16] MEDS ORDERED: LR 1,000 ML IV SCH ×2 (00:19→10:30)
[2019-09-16] MEDS ORDERED: MAG Sulf (L&D) 4 GM/100 ML 4 GM in IV 1 EA IV ONE (00:30)
[2019-09-16] MEDS ORDERED: LABETALOL HCL 100 MG/20 ML VIAL IV ONE (00:30)
[2019-09-16] MEDS ORDERED: LABETALOL HCL 100 MG/20 ML VIAL IV SCH (00:30)
[2019-09-16] MEDS ORDERED: hydrALAZINE INJ 20 MG/ML VIAL IV SCH (00:45)
[2019-09-16] MEDS: MAG Sulf (OBGYN) 20GM/500ML 20,000 MG in IV 1 EA IV SCH ×3 (01:16→21:13)
[2019-09-16] MEDS: LABETALOL HCL 100 MG/20 ML VIAL IV PRN ×2 (04:37→15:18)
[2019-09-16 07:35] LABS: HEMATOCRIT 26.6 % (36.0-47.0); HEMOGLOBIN 7.9 g/dl (12.0-15.5); MEAN CORPUSCULAR HEMOGLOBIN 24.7 pg (27.0-33.0); MEAN CORPUSCULAR HGB CONC 29.7 g/dl (32.0-36.5); MEAN CORPUSCULAR VOLUME 83.1 fl (80.0-96.0); PLATELET COUNT, AUTOMATED 302 10^3/uL (150-450); WHITE BLOOD COUNT 9.4 10^3/uL (4.0-10.0)
[2019-09-16 07:53] LABS: ALBUMIN 2.5 GM/DL (3.2-5.2); ALT/SGPT 45 U/L (12-78); BILIRUBIN,TOTAL 0.2 MG/DL (0.2-1.0); BLOOD UREA NITROGEN 7 MG/DL (7-18); CALCIUM LEVEL 7.5 MG/DL (8.5-10.1); CARBON DIOXIDE LEVEL 23 MEQ/L (21-32); CHLORIDE LEVEL 110 MEQ/L (98-107); CREATININE FOR GFR 0.55 MG/DL (0.55-1.30); GLOMERULAR FILTRATION RATE > 60.0 (>60); GLUCOSE, FASTING 77 MG/DL (70-100); MAGNESIUM LEVEL 5.1 MG/DL (1.8-2.4); POTASSIUM SERUM 3.8 MEQ/L (3.5-5.1); SODIUM LEVEL 140 MEQ/L (136-145); TOTAL PROTEIN 6.1 GM/DL (6.4-8.2)
--- NOTE | 2019-09-16 09:58 | IPNPDOC ---
Text Note Date of Service The patient was seen on 09/16/19. NOTE patient is a 29 yo ppd #5 admitted for severe range BP and currently on mag for Seizure prophy. she has diagnosis of pre-eclampsia with severe feature and had 24hrs mag from her last admission. she also had hemorrhage requiring blood transfusion 1 U. she was discharge with anemia per patient request. She presented to ED yesterday due to seeing stars and passing out at home. On presentation she had severe range BP and was given labetalol 20mg IV. Today reports feeling improved. She is breast pumping without problem. Baby is not with patient due to policy during COVID 19 precautions. mag started around 0100 today Vitals: mild range, bp, non tachy cta s w/r/r s1s2 s m/g/c abd: nd, soft, nt le: mild non pitting edema, no erythema/tenderness uop: > 200cc/hr h/h: 7.9/26.6 a/p patient with presumed pre-e with severe feature. continue mag for 24hrs. start oral antihypertensive as needed. symptomatic anemia. discussed with patient regarding blood transfusion. risks of blood transfusions discussed. patient agrees to plan. transfuse 2 units PRBC. encourage breast pumping. will be picking up milk for baby at home. all questions answered. Desi, VS,Baron, I+O VS, Baron, I+O Laboratory Tests 09/16/19 07:07 Vital Signs Date Time Temp Pulse Resp B/P (MAP) Pulse Ox O2 Delivery O2 Flow Rate FiO2 09/16/19 07:23 98.3 86 18 155/97 (116) 09/16/19 00:19 100 I&O- Last 24 Hours up to 6 AM 09/16/19 06:00 Intake Total 820 ml Output Total 1095 ml Balance -275 ml SHLOMO TREJO DO Sep 16, 2019 09:58
--- NOTE | 2019-09-16 10:00 | HPE ---
DATE OF ADMISSION: 09/16/2019 29-year-old 3, now para 3 was admitted at 36 and 4 weeks of gestation on September 10, 2019 with the complaint of frontal headache, spotty vision, and she had the diagnosis of preeclampsia without severe features. She was given steroids to be steroid complete and induction of labor at 37 weeks of gestation. She was a trial of labor after (TOLAC), who delivered on September 11, 2019, successful vaginal after section (), 6 pounds 1 ounce female. She had a 6702-6337 mL hemorrhage, required 2 units of packed cells. Her discharge hemoglobin was 7.9, hematocrit 26.1. Her risk factors is she had previous preeclampsia. She now has preeclampsia. She has a body mass index (BMI) of 101 kg. She had had a previous section, a successful times two, and she had one episode of a history of pulmonary edema after her last . She came to the emergency room [facility], September 15, 2019, with a history of spots in front of her eyes, tunnel vision, and pressure in her chest and difficulty in vision in her right eye. She did not appear in any distress. She was sitting up. On examination, her reflexes were brisk upper and lower. She had no clonus. Her visual fatima were normal. She had edema in her lower extremities +2 to the knees. Her blood pressures that were monitored were 171/104, 173/115, 164/110, and 164/110, 163/103. Her pulse was 99. Her oxygen saturations were 100% on room air. She was given 20 mg of labetalol intravenous (IV), dropped her blood pressure to 158/101, 151/96, 156/95. She was admitted to the labor and delivery unit for the mag sulfate and hypertensive protocol. Her admitting hemoglobin 8.5, hematocrit 23.3, platelets were normal. Chemistry was normal. Her CPK was elevated. We did a spot protein creatinine, which was negative for protein, therefore, unable to define the protein/creatinine ratio. Our plan of management is to bolus 4 grams of mag IV followed by 2 grams an hour, reduce the rate of input of fluids to 75 mL/hour, Wyman catheter for intake/output on a every 1 hour basis. Vital signs as per protocol. Hypertensive protocol was initiated with labetalol to be followed after maximum 300 mg. If not sustained blood pressure base of 140/90, to institute hydralazine. She is confined to bedrest. She is presently pumping her breasts. She is diet as tolerated. Sequentials on board, and repeat her chemistry and her blood work in 6 hours' time. In summary, we have a pre-eclamptic requiring prophylactic mag sulfate and hypertensive protocol. We spent an hour with this lady previously before discharge. We did discuss with her the use of medication for her blood pressure, however, she declined. We also discussed, because her hemoglobin/hematocrit were 7.9 and 26.1, to top of her blood with another 2 units and she declined wanting to go home. She was discharged in that condition to followup here in emergency for readmission.
--- NOTE | 2019-09-16 11:09 | IPN ---
DATE: 09/16/2019 This lady was admitted with preeclampsia and started on a loading dose of magnesium sulfate 4 grams followed by 2 grams an hour. Over the course of the last 5-6 hours, her blood pressures remained relatively stable in the mid range, although she had two severe range blood pressures; 165/102 times two and at that time, she was given 20 mg of labetalol IV. Her range now runs from a high of 150/97 to 139/92. Her total output over the last 5-6 hours was 1095; she is hourly output between 100 and 120 mL per hour. Our plan of management is to repeat her chemistry, continue 24 hours of her magnesium sulfate and start her on oral antihypertensives. We await her CBC to evaluate whether her hemoglobin/hematocrit has gone down any further than the original 7.9 and 26. The patient presently is feeling well. She is pumping for her baby. All questions were answered.
[2019-09-16] MEDS ORDERED: hydrALAZINE INJ 20 MG/ML VIAL IV STA ×3 (17:27→22:27)
--- NOTE | 2019-09-16 18:27 | REP ---
Clinical: Pulmonary edema. Comparison: 09/15/2019. Findings: Subtle perihilar and lower lobe alveolar infiltrates are suggested and differential diagnosis includes multifocal pneumonia and pulmonary edema. No effusion. No pneumothorax. Cardiac silhouette is upper limits of normal. Musculoskeletal structures are intact. Impression: Subtle bilateral lower lobe alveolar infiltrates suggesting pneumonia versus edema. Electronically Signed by Lele Qiu MD 09/16/2019 06:18 P
--- NOTE | 2019-09-16 19:05 | IPNPDOC ---
Text Note Date of Service The patient was seen on 09/16/19. NOTE patient report feeling SOB. chest xray ordered. currently on mag patient had received labetalol 20mg x 1, hydralazine 5mg x1 and 10mg x1. vitals: BP: 170s-180's/ 100'S sitting in up in bed, tired appearing decreased lung sounds with without crackles or wheezing S1S2 s m/g/c LE: bilateral LE non pitting edema, no erythema/tenderness Chest XRAY: shows pulmonary congestion concerning for pulmonary edema. UOP: > 200cc/hr a/p patient with worsening BP while on mag. likely pulmonary edema due to fluid overload. Continue to restrict fluids. give lasix 20mg IV. jenna, do VS,Baron, I+O VS, Fishbone, I+O Laboratory Tests 09/16/19 07:07 Vital Signs Date Time Temp Pulse Resp B/P (MAP) Pulse Ox O2 Delivery O2 Flow Rate FiO2 09/16/19 18:42 177/117 09/16/19 18:20 98.2 99 20 100 Room Air I&O- Last 24 Hours up to 6 AM 09/16/19 06:00 Intake Total 820 ml Output Total 1095 ml Balance -275 ml SHLOMO TREJO DO Sep 16, 2019 19:05
[2019-09-16] MEDS ORDERED: FUROSEMIDE 20 MG/2 ML VIAL (J1940) IV ONE (19:30)
[2019-09-16] MEDS ORDERED: PRENATAL VITAMINS CHEWABLE TABLET As Ordered ONE (20:31)
[2019-09-16] MEDS ORDERED: PRENATAL VITAMINS CHEWABLE TABLET PO ONE (20:45)
[2019-09-16] MEDS: NIFEdipine 30 MG XL TAB PO SCH (21:14)
--- NOTE | 2019-09-16 23:02 | DNPDOC ---
[facility] Delivery Note Delivery Note DATE OF DELIVERY: 09/16/2019 PREDELIVERY DIAGNOSIS: 40+3/7 weeks' gestation and labor. POST DELIVERY DIAGNOSIS: Delivered. PROCEDURE: primary low transverse section PERSONAL LINES INSURANCE ADVISOR: Dr. Shlomo Weeks DO ANESTHESIA: epidural ESTIMATED BLOOD LOSS: 600 mL. FINDINGS: 6lbs 14oz, 3180 gm female infant, Score 9/9. DELIVERY SUMMARY: uncomplicated primary low transverse section. see operative note for details. SHLOMO WEEKS DO Sep 16, 2019 23:02
[2019-09-16] MEDS: ACETAMINOPHEN TAB 650MG DOSE (2X325MG) PO PRN (23:03)
[2019-09-17] VITALS (12 sets, daily range): BP systolic 121–156; BP diastolic 58–93
[2019-09-17] MEDS ORDERED: PILL CUTTER 1 EACH XX PRN (01:45)
[2019-09-17] MEDS: MAXZIDE 75/50 TABLET PO SCH (06:48)
[2019-09-17] MEDS: ACETAMINOPHEN TAB 650MG DOSE (2X325MG) PO PRN (06:48)
[2019-09-17 06:50] LABS: HEMATOCRIT 33.2 % (36.0-47.0); MEAN CORPUSCULAR HEMOGLOBIN 25.6 pg (27.0-33.0); MEAN CORPUSCULAR VOLUME 82.4 fl (80.0-96.0); PLATELET COUNT, AUTOMATED 326 10^3/uL (150-450); RED BLOOD COUNT 4.03 10^6/uL (4.00-5.40); WHITE BLOOD COUNT 12.4 10^3/uL (4.0-10.0)
--- NOTE | 2019-09-17 06:53 | IPNPDOC ---
Text Note Date of Service The patient was seen on 09/17/19. NOTE Patient is a 29yo s/p ppd#6 readmitted for pre-e with severe range BP. She has new diagnosis of pulmonary edema. Overnight she received labetalol 20mg , lasix 20mg IV, hydralazine 35mg (total) IV. Also started in nifedipine xl 30mg. she was able to sleep laying flat. This morning she reports feeling improved. denies SOB/CP. vitals: normal to mild range BP NAD, laying in bed cta s w/r/r (decreased effort overall) s1s2 s m/g/c abd: nd, soft, nt le: mild edema (improved from prior exam), no erythema/tenderness labs pending a/p patient with pre-e with severe feature and pulmonary edema, clinically improving. continue with nifedipine xl 30mg BID. add maxzide this morning. may need one more dose of lasix to help with diuresing. Desi, VS,Baron, I+O VS, Fishbone, I+O Laboratory Tests 09/16/19 07:07 Vital Signs Date Time Temp Pulse Resp B/P (MAP) Pulse Ox O2 Delivery O2 Flow Rate FiO2 09/17/19 05:26 96 138/69 (92) 09/17/19 00:30 98.6 16 09/16/19 18:20 100 Room Air I&O- Last 24 Hours up to 6 AM 09/17/19 06:00 Intake Total 3121 ml Output Total 6385 ml Balance -3264 ml SHLOMO TREJO DO Sep 17, 2019 06:53
[2019-09-17 07:03] LABS: HEMOGLOBIN 10.3 g/dl (12.0-15.5)
[2019-09-17 07:31] LABS: ALBUMIN 2.4 GM/DL (3.2-5.2); ALT/SGPT 42 U/L (12-78); BILIRUBIN,TOTAL 0.3 MG/DL (0.2-1.0); BLOOD UREA NITROGEN 10 MG/DL (7-18); CALCIUM LEVEL 6.9 MG/DL (8.5-10.1); CARBON DIOXIDE LEVEL 24 MEQ/L (21-32); CHLORIDE LEVEL 114 MEQ/L (98-107); CREATININE FOR GFR 0.51 MG/DL (0.55-1.30); GLOMERULAR FILTRATION RATE > 60.0 (>60); GLUCOSE, FASTING 74 MG/DL (70-100); POTASSIUM SERUM 3.7 MEQ/L (3.5-5.1); SODIUM LEVEL 144 MEQ/L (136-145); TOTAL PROTEIN 5.7 GM/DL (6.4-8.2)
[2019-09-17] MEDS: NIFEdipine 30 MG XL TAB PO SCH ×2 (09:08→20:13)
[2019-09-17] MEDS: PRENATAL VITAMINS CHEWABLE TABLET PO SCH (09:09)
[2019-09-17] MEDS ORDERED: ACETAMINOPHEN 325 MG TAB PO PRN (12:00)
[2019-09-18 02:00] VITALS: BP 133/81
[2019-09-18 06:00] VITALS: BP 127/80
--- NOTE | 2019-09-18 06:40 | IPNPDOC ---
Text Note Date of Service The patient was seen on 09/18/19. NOTE patient is a 29 yo ppd #7 admitted for severe range BP HD #3. Patient completed 24hrs of Mag, treated for pulmonary edema with diuretic, and treated for anemia with blood transfusion. She is currently on oral antihypertensives and is tolerating medication without problem. She is ambulating, urinating, tolerating po without problem. she is pumping without problem as well. Vitals: normal to mild range BP cta s w/r/r much improvement in moving air. s1s2 s m/g/c abd: nd, soft, nt le: no edema, no erythema/tenderness a/p patient with presumed pre-e with severe feature, pulmonary edema doing well today. Discussed discharge instructions. she has f/u appointment scheduled for next week with OB clinic. D/C home today. Le, DO VS,Fishbone, I+O VS, Fishbone, I+O Laboratory Tests 09/17/19 06:38 Vital Signs Date Time Temp Pulse Resp B/P (MAP) Pulse Ox O2 Delivery O2 Flow Rate FiO2 09/18/19 06:17 98.8 09/18/19 06:00 89 18 127/80 (96) 99 Room Air I&O- Last 24 Hours up to 6 AM 09/18/19 06:00 Intake Total 1400 ml Output Total 750 ml Balance 650 ml SHLOMO TREJO DO Sep 18, 2019 06:40
--- NOTE | 2019-09-18 06:47 | OBDS ---
[facility] Obstetrical Discharge Sum. Obstetrical Discharge Summary Landfill Grader/Provider: Miguel Ángel Allison MD Date: Sep 18, 2019 : 3 Term: 3 Pre-term: 0 Abortions: 0 Livin A/P, Post Course List any complications Admission diagnosis: 1) pre-eclampsia with severe features (severe range BP) 2) Symptomatic Anemia Discharge diagnosis: 1) pre-eclampsia with severe features 2) pulmonary edema Condition at Discharge: improved Discharge Instructions: Home Activity: as tolerated Diet: regular Medications: 1) Maxzide 37.5/25 1 T po daily 2) Nifedipine XL 30mg 1 T po BID Follow-up: [facility] 1 week for BP check Hospital course: Patient admitted to labor and delivery day #5 for presumed preeclampsia with severe features and anemia. She received magnesium sulfate therapy for 24hrs for seizure prophylaxis. He received multiple rounds of IV antihypertensive medications to keep her blood pressure below severe range. Patient started on oral antihypertensives which she tolerates well. Patient will continue oral antihypertensives as outpatient management. She also received 2 units of PRBC transfused for symptomatic anemia. Patient also di agnosed with pulmonary edema while in patient. She received diuretics for edema. Patient meets criteria for discharge on HD #2. SHLOMO TREJO DO Sep 18, 2019 05:30
[2019-09-18] MEDS ORDERED: MAXZTA PO (06:49)
[2019-09-18] MEDS ORDERED: NIFE1TAB52 PO (06:49)
[2019-09-18] MEDS: MAXZIDE 75/50 TABLET PO SCH (07:16)
[2019-09-18] MEDS: PRENATAL VITAMINS CHEWABLE TABLET PO SCH (08:35)
[2019-09-18 08:36] VITALS: BP 112/59
[2019-09-18] MEDS: NIFEdipine 30 MG XL TAB PO SCH (08:36)
== END 2019-09-18 08:50 | disposition home or self-care (01) | DRG 776 ==
LOC: M LDO 23:55 → M LDI 09-16 00:16 → M OBS 09-17 08:45
PROVIDERS: ADMIT Obstetrics & Gynecology; ATTEND Obstetrics & Gynecology
DX: O14.15 Severe pre-eclampsia, complicating the puerperium (principal)

== ENCOUNTER 2019-10-08 15:42 | Emergency (ER) | payer OTHER ==
[~2019-10-08] VITALS: Ht 160 cm; Wt 101.0 kg
[~2019-10-08 15:42] MED LIST changes: +MAXZTA PO; +NIFE1TAB52 PO
[2019-10-08 16:10] LABS: BASO % 0.5 % (0.0-1.0); EOS # 0.4 10^3/uL (0.0-0.5); EOS % 5.7 % (0.0-3.0); HEMATOCRIT 43.2 % (36.0-47.0); HEMOGLOBIN 13.1 g/dl (12.0-15.5); LYMPH % 26.4 % (24.0-44.0); MEAN CORPUSCULAR HEMOGLOBIN 24.4 pg (27.0-33.0); MEAN CORPUSCULAR HGB CONC 30.3 g/dl (32.0-36.5); MEAN CORPUSCULAR VOLUME 80.6 fl (80.0-96.0); MONO # 0.3 10^3/uL (0.0-0.8); MONO % 4.4 % (0.0-5.0); NEUTROPHILS # 4.8 10^3/uL (1.5-8.5); NEUTROPHILS % 62.7 % (36.0-66.0); PLATELET COUNT, AUTOMATED 373 10^3/uL (150-450); RED BLOOD COUNT 5.36 10^6/uL (4.00-5.40); WHITE BLOOD COUNT 7.7 10^3/uL (4.0-10.0)
[2019-10-08 16:21] LABS: INR 0.96; PROTHROMBIN TIME 12.5 SECONDS (11.8-14.0)
[2019-10-08 16:24] LABS: D-DIMER QUANT 612.05 ng/ml (<500)
[2019-10-08 16:40] LABS: ALBUMIN 3.5 GM/DL (3.2-5.2); BILIRUBIN,DIRECT 0.1 MG/DL (0.0-0.2); BILIRUBIN,TOTAL 0.2 MG/DL (0.2-1.0); CK-MB VALUE MASS 2.7 NG/ML (<3.6); MAGNESIUM LEVEL 2.1 MG/DL (1.8-2.4); MB/CK RELATIVE INDEX 1.7 (< OR =4); THYROID STIMULATING HORMONE 0.966 uIU/ML (0.358-3.740); THYROXINE (T4) 8.9 UG/DL (4.5-12.0); TOTAL PROTEIN 7.4 GM/DL (6.4-8.2); TROPONIN I 0.03 NG/ML (< 0.10)
[2019-10-08] MEDS ORDERED: NS 500 ML IV ONE (17:15)
[2019-10-08 17:16] LABS: APPEARANCE, URINE CLEAR (CLEAR); BACTERIA, URINE AUTO NEGATIVE (NEGATIVE); BILIRUBIN, URINE AUTO NEGATIVE (NEGATIVE); BLOOD, URINE BLOOD NEGATIVE (NEGATIVE); COLOR, URINE STRAW (YELLOW); GLUCOSE, URINE (UA) AUTO NEGATIVE (NEGATIVE); KETONE, URINE AUTO NEGATIVE (NEGATIVE); LEUKOCYTE ESTERASE, URINE AUTO NEGATIVE (NEGATIVE); MUCUS, URINE SMALL (NEGATIVE); NITRITE, URINE AUTO NEGATIVE (NEGATIVE); PROTEIN, URINE AUTO NEGATIVE (NEGATIVE); RBC, URINE AUTO 0 /HPF (0-3); SPECIFIC GRAVITY URINE AUTO 1.003 (1.002-1.035); SQUAMOUS EPITHELIAL CELL UR AU 0 /HPF (0-6); UROBILINOGEN, URINE AUTO 0.2 mg/dL (0.0-2.0); WBC, URINE AUTO 0 /HPF (0-3)
[2019-10-08] MEDS ORDERED: ISOVUE-370 76% 100ML VIAL (Q9967) As Ordered ONE (17:24)
[2019-10-08] MEDS ORDERED: ACETAMINOPHEN 325 MG TAB PO ONE (17:45)
--- NOTE | 2019-10-08 17:48 | REPVR ---
PROCEDURE INFORMATION: Exam: CT Angiography Chest With Contrast Exam date and time: 10/08/2019 5:27 PM Age: 29 years old Clinical indication: Abnormal findings; Abnormal diagnostic tests; Elevated d-dimer; Additional info: Tachycardia, elevated d-dimer R/O pe TECHNIQUE: Imaging protocol: Computed tomographic angiography of the chest with intravenous contrast. 3D rendering: MIP and/or 3D reconstructed images were created by the technologist. Radiation optimization: All CT scans at this facility use at least one of these dose optimization techniques: automated exposure control; mA and/or kV adjustment per patient size (includes targeted exams where dose is matched to clinical indication); or iterative reconstruction. Contrast material: ISOVUE 370; Contrast volume: 75 ml; Contrast route: IV; COMPARISON: CR PORTABLE CHEST X-RAY 10/08/2019 3:55 PM FINDINGS: Pulmonary arteries: No pulmonary arterial emboli. Aorta: Unremarkable. No aortic aneurysm. No aortic dissection. Lungs: No lung consolidation. Pleural space: No pleural effusion. Heart: No cardiomegaly or pericardial effusion. Lymph nodes: No mediastinal or hilar lymphadenopathy. Bones/joints: No significant skeletal findings. Soft tissues: Unremarkable. Other findings: In no significant findings in the upper abdomen. IMPRESSION: No evidence of pulmonary embolic disease or pneumonia. Electronically signed by: Khloe Malloy On 10/08/2019 17:48:23 PM
[2019-10-08 18:15] VITALS: BP 126/70
--- NOTE | 2019-10-09 07:22 | REP ---
REASON: Chest pain. FINDINGS: The technique utilized in obtaining the radiograph has magnified the cardiac silhouette and accentuated the interstitial markings. The superior mediastinal structures are midline. The cardiac silhouette is unremarkable in size, shape, and position. The diaphragmatic surfaces of the lungs are regular, and the costophrenic angles are clear. The pulmonary fatima are clear. The imaged osseous structures are intact. IMPRESSION: There is no acute cardiopulmonary disease. Electronically Signed by Hermann Medellin DO 10/09/2019 08:56 A
--- NOTE | 2019-10-10 09:02 | ECGEPIP ---
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
== END 2019-10-08 18:25 | disposition home or self-care (01) ==
LOC: M ED 15:42 → EDBD 15:42 → M ED 18:25
DX: R00.0 Tachycardia, unspecified (principal); Z86.79 Personal history of other diseases of the circulatory system; Z88.5 Allergy status to narcotic agent; Z79.899 Other long term (current) drug therapy
CPT/HCPCS: 71045; 71275; 80047; 80076; 81001; 82550; 82553; 83690; 83735; 83880; 84436; 84443; 84479; 84484; 85025; 85379; 85610; 93005; 93041; 94760; 96360; 99285; Q9967

== ENCOUNTER 2019-10-27 00:33 | Emergency (ER) | payer OTHER ==
[~2019-10-27] VITALS: Ht 160 cm; Wt 94.1 kg
[2019-10-27] MEDS ORDERED: HYDR12.55 PO (02:14)
[2019-10-27] MEDS ORDERED: AMLO25TA PO (02:14)
[2019-10-27 03:08] LABS: BASO % 0.4 % (0.0-1.0); EOS # 0.2 10^3/uL (0.0-0.5); EOS % 1.8 % (0.0-3.0); HEMATOCRIT 40.1 % (36.0-47.0); HEMOGLOBIN 12.2 g/dl (12.0-15.5); LYMPH # 1.4 10^3/uL (1.5-5.0); LYMPH % 14.3 % (24.0-44.0); MEAN CORPUSCULAR HEMOGLOBIN 24.4 pg (27.0-33.0); MEAN CORPUSCULAR HGB CONC 30.4 g/dl (32.0-36.5); MONO # 0.5 10^3/uL (0.0-0.8); MONO % 5.6 % (0.0-5.0); NEUTROPHILS # 7.5 10^3/uL (1.5-8.5); NEUTROPHILS % 77.7 % (36.0-66.0); PLATELET COUNT, AUTOMATED 288 10^3/uL (150-450); RED BLOOD COUNT 5.01 10^6/uL (4.00-5.40); WHITE BLOOD COUNT 9.7 10^3/uL (4.0-10.0)
[2019-10-27] MEDS ORDERED: DICLOXACILLIN 250 MG CAP PO ONE (03:15)
[2019-10-27] MEDS ORDERED: LABETALOL 100 MG TAB PO ONE (03:15)
[2019-10-27 03:30] VITALS: BP 148/92
[2019-10-27] MEDS ORDERED: LABE200T32 PO (03:33)
[2019-10-27 03:51] VITALS: BP 144/80
== END 2019-10-27 03:52 | disposition home or self-care (01) ==
LOC: M ED 00:33
DX: N61.0 Mastitis without abscess (principal); O15.2 Eclampsia complicating the puerperium; I48.91 Unspecified atrial fibrillation; E66.9 Obesity, unspecified; Z88.5 Allergy status to narcotic agent; Z79.899 Other long term (current) drug therapy

== ENCOUNTER 2019-10-30 23:56 | Emergency (ER) | payer OTHER ==
[~2019-10-30] VITALS: Ht 160 cm; Wt 94.1 kg
[~2019-10-30 23:56] MED LIST changes: +AMLO25TA PO; +HYDR12.55 PO; +LABE200T32 PO
[2019-10-31] MEDS ORDERED: DOXY1CAP60 PO (00:09)
[2019-10-31 01:15] LABS: BLOOD UREA NITROGEN 8 MG/DL (7-18); CALCIUM LEVEL 8.8 MG/DL (8.5-10.1); CARBON DIOXIDE LEVEL 27 MEQ/L (21-32); CHLORIDE LEVEL 107 MEQ/L (98-107); CPK CREATINE PHOSPHOKINASE 291 U/L (26-192); CREATININE FOR GFR 0.58 MG/DL (0.55-1.30); GLOMERULAR FILTRATION RATE > 60.0 (>60); GLUCOSE, FASTING 83 MG/DL (70-100); MAGNESIUM LEVEL 1.9 MG/DL (1.8-2.4); MB/CK RELATIVE INDEX 2.06 (< OR =4); POTASSIUM SERUM 3.5 MEQ/L (3.5-5.1); SODIUM LEVEL 141 MEQ/L (136-145); TROPONIN I 0.02 NG/ML (< 0.10)
[2019-10-31 01:18] LABS: BASO # 0.1 10^3/uL (0.0-0.2); BASO % 0.8 % (0.0-1.0); EOS # 0.3 10^3/uL (0.0-0.5); EOS % 5.1 % (0.0-3.0); HEMATOCRIT 38.9 % (36.0-47.0); HEMOGLOBIN 11.8 g/dl (12.0-15.5); LYMPH # 1.8 10^3/uL (1.5-5.0); LYMPH % 27.8 % (24.0-44.0); MEAN CORPUSCULAR HEMOGLOBIN 24.4 pg (27.0-33.0); MEAN CORPUSCULAR HGB CONC 30.3 g/dl (32.0-36.5); MEAN CORPUSCULAR VOLUME 80.4 fl (80.0-96.0); MONO # 0.3 10^3/uL (0.0-0.8); MONO % 4.8 % (0.0-5.0); NEUTROPHILS % 61.3 % (36.0-66.0); PLATELET COUNT, AUTOMATED 350 10^3/uL (150-450); RED BLOOD COUNT 4.84 10^6/uL (4.00-5.40); WHITE BLOOD COUNT 6.5 10^3/uL (4.0-10.0)
[2019-10-31 01:42] VITALS: BP 144/84
--- NOTE | 2019-10-31 02:46 | REP ---
Clinical: Chest pain . Comparison: 10/08/2019 . Findings: The mediastinum and cardiac silhouette are stable and within normal limits for portable technique. The lung fatima are clear without acute consolidation, effusion, or pneumothorax. Skeletal structures are intact. Impression: No acute cardiopulmonary process appreciated. Electronically Signed by Lele Qiu MD 10/31/2019 02:37 A
--- NOTE | 2019-11-01 08:52 | ECGEPIP ---
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
== END 2019-10-31 02:32 | disposition home or self-care (01) ==
LOC: M ED 23:56
DX: R00.2 Palpitations (principal); Z88.5 Allergy status to narcotic agent; Z79.899 Other long term (current) drug therapy

== ENCOUNTER 2019-12-21 16:14 | Emergency (ER) | payer OTHER ==
[~2019-12-21] VITALS: Ht 160 cm; Wt 86.8 kg
[~2019-12-21 16:14] MED LIST changes: +DOXY1CAP60 PO
[2019-12-21] MEDS ORDERED: IBUPROFEN 800 MG TAB PO ONE (17:45)
[2019-12-21 18:10] LABS: BASO # 0.1 10^3/uL (0.0-0.2); BASO % 0.8 % (0.0-1.0); EOS # 0.2 10^3/uL (0.0-0.5); EOS % 3.1 % (0.0-3.0); HEMATOCRIT 40.6 % (36.0-47.0); HEMOGLOBIN 12.7 g/dl (12.0-15.5); LYMPH # 2.3 10^3/uL (1.5-5.0); LYMPH % 30.4 % (24.0-44.0); MEAN CORPUSCULAR HEMOGLOBIN 24.2 pg (27.0-33.0); MEAN CORPUSCULAR HGB CONC 31.3 g/dl (32.0-36.5); MEAN CORPUSCULAR VOLUME 77.3 fl (80.0-96.0); MONO # 0.3 10^3/uL (0.0-0.8); NEUTROPHILS # 4.6 10^3/uL (1.5-8.5); NEUTROPHILS % 61.6 % (36.0-66.0); PLATELET COUNT, AUTOMATED 362 10^3/uL (150-450); RED BLOOD COUNT 5.25 10^6/uL (4.00-5.40); WHITE BLOOD COUNT 7.4 10^3/uL (4.0-10.0)
[2019-12-21 18:21] LABS: INR 1.08; PROTHROMBIN TIME 13.7 SECONDS (11.8-14.0)
[2019-12-21 18:22] LABS: PARTIAL THROMBOPLASTIN TIME 33.2 SECONDS (25.0-38.4)
[2019-12-21 18:41] LABS: CK-MB VALUE MASS 10.2 NG/ML (<3.6); MB/CK RELATIVE INDEX 1.8 (< OR =4); TROPONIN I 0.02 NG/ML (< 0.10)
--- NOTE | 2019-12-21 18:51 | REP ---
Chest x-ray: Two views. History: Chest pain. Comparison chest x-ray: October 31, 2019, October 08, 2019, and September 16, 2019. Findings: Mild to moderate cardiomegaly is again observed. Cardiothoracic ratio measures 51.4%. Pulmonary vasculature is cephalized. Pleural angles are sharp. There is no evidence of pulmonary edema or infiltrate. Impression: Mild cardiomegaly. Pulmonary vascular cephalization. No pleural effusion or pulmonary edema. Electronically Signed by Grayson Foster MD 12/21/2019 06:43 P
[2019-12-21 19:36] LABS: D-DIMER QUANT 313.42 ng/ml (<500)
[2019-12-21 19:49] VITALS: BP 140/86
--- NOTE | 2019-12-21 21:38 | ECGEPIP ---
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
== END 2019-12-21 19:50 | disposition home or self-care (01) ==
LOC: M ED 16:14
DX: R07.9 Chest pain, unspecified (principal); I11.9 Hypertensive heart disease without heart failure; Z88.6 Allergy status to analgesic agent

== ENCOUNTER 2020-01-20 07:52 | Emergency (ER) | payer OTHER ==
[2020-01-20] MEDS ORDERED: MECLIZINE 25 MG TABLET ONE (07:53)
[2020-01-20] MEDS ORDERED: MECLIZINE 25 MG TABLET As Ordered ONE (09:04)
== END 2020-01-20 10:03 | disposition home or self-care (01) ==
LOC: M ED 07:52
DX: H81.391 Other peripheral vertigo, right ear (principal); H65.03 Acute serous otitis media, bilateral; I10 Essential (primary) hypertension; F41.9 Anxiety disorder, unspecified

== ENCOUNTER 2020-10-22 05:40 | Emergency (ER) | payer OTHER ==
[~2020-10-22] VITALS: Ht 160 cm; Wt 92.5 kg
[~2020-10-22 05:40] MED LIST changes: -DIBU10OI TOP; +DIBU28OI2 TOP
--- NOTE | 2020-10-22 07:23 | REPVR ---
PROCEDURE INFORMATION: Exam: XR Right Ankle Exam date and time: 10/22/2020 6:57 AM Age: 30 years old Clinical indication: Pain; Ankle; Right; Additional info: Trauma, twisted TECHNIQUE: Imaging protocol: XR Right ankle. Views: 3 or more views. COMPARISON: No relevant prior studies available. FINDINGS: Bones/joints: There is faint curvilinear calcification distal to the tip of the lateral malleolus which could represent a fracture fragment. No fracture is identified elsewhere. The joint spaces are normally aligned. The ankle mortise is preserved on these nonstressed views. Soft tissues: There is mild soft tissue swelling laterally. IMPRESSION: Mild lateral soft tissue swelling with faint curvilinear calcification distal to the tip of the lateral malleolus which could represent fracture fragment. Electronically signed by: Clifford Ge On 10/22/2020 07:22:56 AM
--- NOTE | 2020-10-22 07:24 | REPVR ---
PROCEDURE INFORMATION: Exam: XR Right Foot Exam date and time: 10/22/2020 6:57 AM Age: 30 years old Clinical indication: Pain; Foot; Right; Additional info: Trauma, twisted TECHNIQUE: Imaging protocol: XR Right foot. Views: 3 or more views. COMPARISON: No relevant prior studies available. FINDINGS: Bones/joints: No acute fracture or dislocation is identified. An accessory navicular is noted. There is also a small accessory ossicle lateral to the cuboid. Soft tissues: The soft tissues appear grossly unremarkable, allowing for overlying garment. IMPRESSION: No acute fracture or dislocation identified. Electronically signed by: Clifford Ge On 10/22/2020 07:24:51 AM
[2020-10-22 08:02] VITALS: BP 145/81
--- NOTE | 2020-10-22 15:07 | ED PDOC ---
Post-Departure Follow-Up ankle film faxed to liz [facility]ain for fu Milan Metzger MD Oct 22, 2020 15:07
== END 2020-10-22 07:59 | disposition home or self-care (01) ==
LOC: M ED 05:40
DX: S93.401A Sprain of unspecified ligament of right ankle, initial encounter (principal); X50.9XXA Other and unspecified overexertion or strenuous movements or postures, initial encounter; Y92.410 Unspecified street and highway as the place of occurrence of the external cause; Y93.89 Activity, other specified; Y99.8 Other external cause status

== ENCOUNTER 2021-02-14 11:36 | Emergency (ER) | payer OTHER ==
[~2021-02-14] VITALS: Ht 160 cm; Wt 96.3 kg
[2021-02-14] MEDS ORDERED: VITMTA PO (11:58)
[2021-02-14 14:56] VITALS: BP 137/86
== END 2021-02-14 15:10 | disposition home or self-care (01) ==
LOC: M ED 11:36
DX: J02.9 Acute pharyngitis, unspecified (principal); J45.909 Unspecified asthma, uncomplicated